=== PATIENT | female | born 1950 | race Caucasian/White ===

== ENCOUNTER 2018-10-11 08:17 | Day surgery (SDC) | payer OTHER ==
[2018-10-10 12:58] VITALS: BMI 25.0
[2018-10-11 11:04] VITALS: TEMP 97.5
[2018-10-11 11:12] VITALS: PULSE 61
[2018-10-11 11:44] VITALS: BP 106/71
--- NOTE | 2018-10-12 17:05 | PATH ---
Surgical Pathology Report Patient Name: AMALIA GUTIERREZ [facility]. Rec. #: [id number] /Age/Gender: 1950 (Age: 68) / F Account: [id number] Location: [facility]SU-ENDOSCOPY Taken: 10/11/2018 Received: 10/11/2018 Reported: 10/12/2018 Physicians: Jose Mccloud M.D. Specimen(s) Received A: CECUM B: TERMINAL ILEUM C: HEPATIC FLEXURE D: TRANSVERSE COLON POLYP E: TRANSVERSE COLON F: DESCENDING COLON G: SIGMOID COLON H: RECTAL STRICTURE I: RECTUM Clinical History History of colonic polyp, colitis surveillance Postoperative diagnosis: Ulcerative colitis, rectal and anal stricture Final Diagnosis A. CECUM, BIOPSY: COLONIC MUCOSA WITH NO PATHOLOGIC FINDINGS. B. TERMINAL ILEUM, BIOPSY: ILEAL MUCOSA WITH NO PATHOLOGIC FINDINGS. C. HEPATIC FLEXURE, BIOPSY: COLONIC MUCOSA WITH NO PATHOLOGIC FINDINGS. D. TRANSVERSE COLON, POLYP, BIOPSY: COLONIC MUCOSA SHOWING FOCAL SURFACE HYPERPLASTIC CHANGE. E. TRANSVERSE COLON, BIOPSY: COLONIC MUCOSA SHOWING SURFACE HYPERPLASTIC CHANGE AND BENIGN/REACTIVE LYMPHOID AGGREGATE. F. DESCENDING COLON, BIOPSY: COLONIC MUCOSA WITH NO PATHOLOGIC FINDINGS. G. SIGMOID COLON, BIOPSY: MODERATE CHRONIC COLITIS, MILDLY ACTIVE. NEGATIVE FOR DYSPLASIA. H. RECTAL STRICTURE, BIOPSY: SEVERE CHRONIC ACTIVE PROCTITIS. NEGATIVE FOR DYSPLASIA. I. RECTUM, BIOPSY: SEVERE CHRONIC ACTIVE PROCTITIS. NEGATIVE FOR DYSPLASIA. Electronically Signed Princess Birmingham M.D. Gross Description A. Received in formalin, labeled "biopsy cecum" are 2 lopez, irregular portions of soft tissue measuring 0.4 and 0.5 cm. in greatest dimension. The specimens are submitted in toto in one cassette. B. Received in formalin, labeled "biopsy terminal ileum" is a lopez, irregular portion of soft tissue measuring 0.7 cm. in greatest dimension. The specimen is submitted in toto in one cassette. C. Received in formalin, labeled "biopsy hepatic flexure" are 2 lopez, irregular portions of soft tissue measuring 0.2 and 0.6 cm. in greatest dimension. The specimens are submitted in toto in one cassette. D. Received in formalin, labeled "biopsy transverse colon polyp" is a lopez, irregular portion of soft tissue measuring 0.4 cm. in greatest dimension. The specimen is submitted in toto in one cassette. E. Received in formalin, labeled "biopsy transverse colon" are 2 lopez, irregular portions of soft tissue averaging 0.4 cm. in greatest dimension. The specimens are submitted in toto in one cassette. F. Received in formalin, labeled "biopsy descending colon" are 5 lopez, irregular portions of soft tissue ranging from 0.3-0.8 cm. in greatest dimension. The specimens are submitted in toto in one cassette. G. Received in formalin, labeled "biopsy sigmoid colon" is a lopez, irregular portion of soft tissue measuring 0.5 cm. in greatest dimension. The specimen is submitted in toto in one cassette. H. Received in formalin, labeled "biopsy rectal stricture" are 5 lopez, irregular portions of soft tissue ranging from 0.2-0.4 cm. in greatest dimension. The specimens are submitted in toto in one cassette. I. Received in formalin, labeled "biopsy rectum" are 3 lopez, irregular portions of soft tissue ranging from 0.2-0.5 cm. in greatest dimension. The specimens are submitted in toto in one cassette. 10/11/[address] [facility]10/11/2018
== END 2018-10-11 11:38 | disposition home or self-care (01) ==
LOC: JASU-ENDO 08:17
PROVIDERS: ATTEND Internal Medicine Gastroenterology
PROC: 0DBL8ZX Excision of Transverse Colon, Via Natural or Artificial Opening Endoscopic, Diagnostic (ICD-10-PCS; 2018-10-11)
PROC: 0DBP8ZX Excision of Rectum, Via Natural or Artificial Opening Endoscopic, Diagnostic (ICD-10-PCS; principal; 2018-10-11 09:00)
DX: Z12.11 Encounter for screening for malignant neoplasm of colon (principal); K51.90 Ulcerative colitis, unspecified, without complications; K62.1 Rectal polyp; K62.4 Stenosis of anus and rectum; D12.3 Benign neoplasm of transverse colon; K62.7 Radiation proctitis
CPT/HCPCS: 88305-TC

== ENCOUNTER 2021-03-09 04:39 | Day surgery (SDC) | payer OTHER ==
[2021-03-04 15:14] VITALS: BMI 27.1
[2021-03-09 08:29] VITALS: TEMP 97.5
[2021-03-09 09:26] VITALS: BP 113/64; PULSE 64
[2021-03-09 09:31] LABS: BASO % 0.9 % (0-2.0); EOS % 1.3 % (0-4.5); HEMATOCRIT 36.3 % (32.4-45.2); HEMOGLOBIN 12.5 GM/dL (10.7-15.3); LYMPH % 25.5 % (8-40); MCH 31.9 pg (25.7-33.7); MCHC 34.5 g/dl (32.0-36.0); MEAN CELL VOLUME 92.4 fl (80-96); MEAN PLT VOLUME 8.1 fl (7.5-11.1); MONO % 6.8 % (3.8-10.2); NEUT % 65.5 % (42.8-82.8); PLATELET COUNT 194 10^3/uL (134-434); RBC 3.93 M/mm3 (3.60-5.2); RDW 13.2 % (11.6-15.6); WHITE BLOOD COUNT 5.2 K/mm3 (4.0-10.0)
[2021-03-09 09:46] LABS: CHLORIDE 108 mmol/L (98-107); SODIUM 141 mmol/L (136-145)
[2021-03-09 09:48] LABS: ALBUMIN 3.7 g/dl (3.4-5.0); ANION GAP 4 MMOL/L (8-16); BLOOD UREA NITROGEN 12.7 mg/dL (7-18); CALCIUM 9.7 mg/dL (8.5-10.1); CO2 29 mmol/L (21-32); GLUCOSE,RANDOM 91 mg/dL (74-106)
[2021-03-09 09:52] LABS: CHOLESTEROL 259 mg/dL (50-200); CREATININE 0.8 mg/dL (0.55-1.3); SGOT/AST 18 U/L (15-37); SGPT/ALT 21 U/L (13-61)
[2021-03-09 09:53] LABS: BILIRUBIN,TOTAL 0.5 mg/dL (0.2-1); TOT PROT 7.1 g/dl (6.4-8.2); TRIGLYCERIDES 176 mg/dL (0-150)
[2021-03-09 09:55] LABS: HDL CHOLESTEROL 76 mg/dL (40-60)
[2021-03-09 09:56] LABS: ALK PHOS 82 U/L (45-117); LDL CHOLESTEROL (ONLY SJRH) 129 mg/dL (5-100)
== END 2021-03-09 09:15 | disposition home or self-care (01) ==
LOC: JASU-ENDO 04:39
PROVIDERS: ATTEND Internal Medicine Gastroenterology
PROC: 0DBP8ZX Excision of Rectum, Via Natural or Artificial Opening Endoscopic, Diagnostic (ICD-10-PCS; 2021-03-09)
PROC: 0DBK8ZX Excision of Ascending Colon, Via Natural or Artificial Opening Endoscopic, Diagnostic (ICD-10-PCS; principal; 2021-03-09 07:56)
DX: Z12.11 Encounter for screening for malignant neoplasm of colon (principal); K51.90 Ulcerative colitis, unspecified, without complications; D12.2 Benign neoplasm of ascending colon; K62.4 Stenosis of anus and rectum
CPT/HCPCS: 36415; 80053; 80061; 82306; 82550; 85025; 86140; 88305-TC

== ENCOUNTER 2022-10-22 05:41 | Day surgery (SDC) | payer OTHER ==
[2022-10-20 11:42] VITALS: BMI 25.8
[2022-10-22 09:30] VITALS: BP 116/47; PULSE 67; RESP 20; TEMP 97.7
== END 2022-10-22 09:31 | disposition home or self-care (01) ==
LOC: JASU-ENDO 05:41
PROVIDERS: ATTEND Internal Medicine Gastroenterology
PROC: 0DBK8ZX Excision of Ascending Colon, Via Natural or Artificial Opening Endoscopic, Diagnostic (ICD-10-PCS; 2022-10-22)
PROC: 0DBL8ZX Excision of Transverse Colon, Via Natural or Artificial Opening Endoscopic, Diagnostic (ICD-10-PCS; 2022-10-22)
PROC: 0DBP8ZX Excision of Rectum, Via Natural or Artificial Opening Endoscopic, Diagnostic (ICD-10-PCS; 2022-10-22)
PROC: 0DBB8ZX Excision of Ileum, Via Natural or Artificial Opening Endoscopic, Diagnostic (ICD-10-PCS; 2022-10-22)
PROC: 0DBM8ZX Excision of Descending Colon, Via Natural or Artificial Opening Endoscopic, Diagnostic (ICD-10-PCS; 2022-10-22)
PROC: 0DBH8ZX Excision of Cecum, Via Natural or Artificial Opening Endoscopic, Diagnostic (ICD-10-PCS; 2022-10-22)
PROC: 0DBN8ZX Excision of Sigmoid Colon, Via Natural or Artificial Opening Endoscopic, Diagnostic (ICD-10-PCS; principal; 2022-10-22 08:00)
DX: Z12.11 Encounter for screening for malignant neoplasm of colon (principal); K51.90 Ulcerative colitis, unspecified, without complications; K63.5 Polyp of colon; Z86.010 Personal history of colon polyps
CPT/HCPCS: 88305-TC